=== PATIENT | male | born 1995 | race Caucasian/White ===

== ENCOUNTER 2019-01-25 23:14 | Emergency (ER) | payer MEDICAID ==
[~2019-01-25] VITALS: Ht 177.8 cm; Wt 72.6 kg
[2019-01-25 23:15] VITALS: BP_SYST 123
--- NOTE | 2019-01-25 23:44 | NUR ---
Patient to ER bed 7 to gown for evaluation. Side rails up. Report given to Reji CONTRERAS.
--- NOTE | 2019-01-25 23:45 | NUR ---
Patient to ER via triage for evaluation of headache with nausea and dizziness x 1 hour prior to arrival. Patient is awake, alert and oriented in no acute distress, vital signs stable, respirations even and unlabored, skin warm and dry to touch. Patient able to ambulate without difficulty with slow, steady gait to bed 7. Awaiting evaluation by ER MD, will continue to observe and assess. Patient denies any known trauma or injury.
--- NOTE | 2019-01-26 00:25 | NUR ---
ER at bedside examining patient.
[2019-01-26] MEDS ORDERED: NACL 0.9% 1,000 ML IV ONE (00:45)
[2019-01-26] MEDS ORDERED: METOCLOPRAMIDE HCL 10 MG/2 ML VIAL IVP ONE (00:45)
[2019-01-26] MEDS ORDERED: DIPHENHYDRAMINE INJ 50 MG/ML VIAL IVP ONE (00:45)
--- NOTE | 2019-01-26 00:50 | NUR ---
Patient to CT scan in stable condition via gurney
--- NOTE | 2019-01-26 01:05 | NUR ---
Patient returned from CT scan in stable condition via gurney. IV fluids infusing without difficulty, no redness or swelling noted at site. No adverse reaction noted to medication.
[2019-01-26] MEDS ORDERED: KETOROLAC TROMETHAMINE 15 MG VIAL IVP ONE (01:45)
--- NOTE | 2019-01-26 01:45 | NUR ---
Patient resting quietly in no acute distress, IV fluids complete and patient tolerated well. Patient medicated with Toradol for pain, will continue to observe and assess. Lights dimmed for patient comfort. Awaiting results and dispo.
--- NOTE | 2019-01-26 01:54 | NUR ---
Dr Díaz at bedside speaking with patient regarding results and plan of care, questions answered by Dr Díaz.
[2019-01-26 02:00] VITALS: BP_SYST 116
--- NOTE | 2019-01-26 02:00 | NUR ---
Patient given written and verbal discharge instructions and verbalizes understanding. ER MD discussed with patient the results and treatment provided. Patient in stable condition. ID arm band removed. IV catheter removed intact and dressing applied, no active bleeding. Rx of Vistaril, Anaprox given. Patient educated on pain management and to follow up with PMD. Pain Scale 0. Opportunity for questions provided and answered. Medication side effect fact sheet provided. Patient left ER in no acute distress, able to ambulate without difficulty with slow, steady gait. No adverse reaction noted to medication.
== END 2019-01-26 02:00 | disposition home or self-care (01) ==
LOC: SED 23:14
DX: R51 Headache (principal); R11.0 Nausea; R05 Cough
CPT/HCPCS: 70450; 96361; 96374; 96375; 99284; J1200; J1885; J2765; J7030

== ENCOUNTER 2019-09-30 03:05 | Emergency (ER) | payer MEDICAID ==
[~2019-09-30] VITALS: Ht 177.8 cm; Wt 72.6 kg
--- NOTE | 2019-09-30 03:20 | NUR ---
Patient to ER bed 8 to gown for evaluation. Side rails up.
[2019-09-30 03:25] VITALS: BP_SYST 134
--- NOTE | 2019-09-30 03:30 | NUR ---
ER at bedside examining patient.
--- NOTE | 2019-09-30 03:35 | NUR ---
Pt came to the ED for LLE pain for the last 2 days. Reports that she has not taken any medications for pain. denies trauma. No other complaints/injuries noted. Will cont. to monitor.
--- NOTE | 2019-09-30 03:35 | NUR ---
Pt came to the ED for L lower leg pain for the 2 days. The patient is a 23-year-old male that comes into the emergency department secondary complaints of left lower calf pain for the last 2 days. Patient has taken no medications for pain. He cannot recall doing anything that causes to be painful. He denies any shortness of breath or chest pain. He has no fevers or chills.
--- NOTE | 2019-09-30 04:00 | NUR ---
pt resting comfortably in bed, no signs of acute distress. Will cont. to monitor.
--- NOTE | 2019-09-30 05:29 | NUR ---
Pt went to ultrasound.
[2019-09-30 05:58] VITALS: BP_SYST 134
--- NOTE | 2019-09-30 05:58 | NUR ---
Patient given written and verbal discharge instructions and verbalizes understanding. ER MD Dr. Jacobson discussed with patient the results and treatment provided. Patient in stable condition. ID arm band removed. Rx of motrin given. Patient educated on pain management and to follow up with PMD. Pain Scale 0/10. Opportunity for questions provided and answered. Medication side effect fact sheet provided.
== END 2019-09-30 05:58 | disposition home or self-care (01) ==
LOC: SED 03:05
DX: S86.912A Strain of unspecified muscle(s) and tendon(s) at lower leg level, left leg, initial encounter (principal); X58.XXXA Exposure to other specified factors, initial encounter; Y93.89 Activity, other specified; Y92.89 Other specified places as the place of occurrence of the external cause; Y99.8 Other external cause status
CPT/HCPCS: 93971; 99284